=== PATIENT | male | born 1975 | race African-American/Black ===

== ENCOUNTER 2016-04-21 11:50 | Emergency (ER) | payer MEDICARE, MEDICAID ==
[2016-04-21] MEDS ORDERED: SODIUM CHLORIDE 0.9% 1,000 ML ONE (18:33)
== END 2016-04-21 19:45 | disposition home or self-care (01) ==
LOC: ER 11:50
DX: G40.909 Epilepsy, unspecified, not intractable, without status epilepticus (principal); Z79.899 Other long term (current) drug therapy; F17.290 Nicotine dependence, other tobacco product, uncomplicated
CPT/HCPCS: 36415; 80053; 81001; 82947; 85025; 96360; 99283; G0479; 80307